=== PATIENT | male | born 1975 | race Caucasian/White ===

== ENCOUNTER → 2018-11-07 16:06 | Outpatient (CLI) | payer BC, SELFPAY ==
--- NOTE | 2018-11-07 16:13 | XR_ITS ---
XR ribs RT min 3V w CXR1V HISTORY: ITS.REASON: RIGHT RIB PAIN ORDERING PHYSICIAN: Gibran Thompson MD PATIENT AGE: 43 years Comparison: None FINDINGS: A frontal view of the chest shows no acute finding. Multiple views of the Left ribs were obtained. No fracture or dislocation. No lytic or blastic change. IMPRESSION: Negative RIBS. If pain persists, consider follow-up exam in 7-[address] with 3-D reformats.
== END ==
PROVIDERS: PCP Family Medicine; Visit Provider Family Medicine
DX: R07.81 Pleurodynia (principal)
CPT/HCPCS: 71101

== ENCOUNTER → 2020-09-04 15:49 | Outpatient (CLI) | payer BC, SELFPAY ==
[2020-09-06 11:41] LABS: Covid-19 Nasal PCR Sendout P&C Negative
== END ==
PROVIDERS: PCP Family Medicine; Visit Provider Nurse Practitioner
DX: Z11.52 Encounter for screening for COVID-19 (principal); R53.81 Other malaise; R68.89 Other general symptoms and signs
CPT/HCPCS: U0004

== ENCOUNTER → 2022-06-16 10:06 | Outpatient (CLI) | payer BC, SELFPAY ==
[2022-06-16 11:57] LABS: Adenovirus,PCR Not Detected (NotDetected); Bordetella Pertussis Not Detected (NotDetected); Chlamydophila Pneumoniae, PCR Not Detected (NotDetected); Coronavirus 19, PCR Not Detected (NotDetected); Coronavirus 229E Not Detected (NotDetected); Coronavirus NL63 Not Detected (NotDetected); Coronavirus OC43 Not Detected (NotDetected); Coronovirus HKU1,PCR Not Detected (NotDetected); Human Metapneumovirus Not Detected (NotDetected); Influenza A, PCR Not Detected (NotDetected); Influenza AH1, PCR Not Detected (NotDetected); Influenza AH3,PCR Not Detected (NotDetected); Influenza B, PCR Not Detected (NotDetected); Mycoplasma Pneumoniae, PCR Not Detected (NotDetected); Parainfluenza 1, PCR Not Detected (NotDetected); Parainfluenza 2, PCR Not Detected (NotDetected); Parainfluenza 3, PCR Not Detected (NotDetected); Parainfluenza 4, PCR Not Detected (NotDetected); Respiratory Syncytial Virus Not Detected (NotDetected); Rhinovirus/Enterovirus Not Detected (NotDetected)
[2022-06-16 15:33] LABS: Influenza AH1, 2009 Detected (NotDetected)
== END ==
PROVIDERS: PCP Family Medicine; Visit Provider Nurse Practitioner Family
DX: Z20.822 Contact with and (suspected) exposure to COVID-19 (principal); R50.9 Fever, unspecified; J10.1 Influenza due to other identified influenza virus with other respiratory manifestations
CPT/HCPCS: 87581; 87632; 87798; C9803; U0003; U0005

== ENCOUNTER 2022-06-19 08:33 | Emergency (ER) | payer BC, SELFPAY ==
[2022-06-19 08:40] VITALS: BP 124/68; PULSE 71; RESP 20; TEMP 37; O2SAT 95; BMI 27.1
--- NOTE | 2022-06-19 08:49 | EXP.UTC ---
Discharge Plan Disposition Patient Disposition: Home, Self-Care Condition: Good Prescriptions Prescriptions: New azithromycin [Zithromax Z-Sameer] 250 mg tablet See Rx Instructions .ROUTE .COMPLEX 5 Days Qty: 6 0RF Rx Instructions: For 250 mg dose pack: take 500 mg today (day 1), then 250 mg for 4 days (days 2-5) methylprednisolone [Medrol (Sameer)] 4 mg tablets,dose pack See Rx Instructions .Route .COMPLEX 6 Days Qty: 21 0RF Rx Instructions: taper pack; dngcxqgtljqjsxb-atsofktje-KB [Bromfed DM] 2-30-10 mg/5 mL Syrup 10 ml PO Q4H PRN (Reason: Cough) Qty: 240 0RF No Action loratadine [Claritin] 10 mg tablet 10 mg PO ONCE Referrals Follow up/Referrals: Kassy Dow MD [Primary Care Provider] - See instructions Activity Restrictions/Add. Instructions Additional Instructions/Restrictions: Start Oral steriods tomorrow *Monitor Temp, Over the counter Motrin or Tylenol as directed/as needed Tylenol every 4 hours and Motrin every 6 hours (as long as your family doctor has told you that you can take it) for fever or pain. and straight to ER if unable to lower temp less than 101.0 after medication given *Warm salt water gargles may help to soothe the throat *Throat Lozenges? *Warm fluids like tea with honey may help to soothe the throat? *Sleep elevated *Humidifier/Vaporizer Your throat swab was sent for culture. Those results are typically sent to your primary care. Be sure to follow up in 2-3 days with your family doctor/primary care physician if no improvement so they can review those result and treat if necessary. If you don?t have a primary care doctor, I recommend you get one but in the mean time, you will have to return to a walk in clinic Follow up IMMEDIATELY for new or worsening symptoms or no Noticeable improvement over the next 48-72 hours. 911 for difficulty breathing or swallowing Clinical Impressions Clinical Impression: Pharyngitis Qualifiers: Pharyngitis/tonsillitis etiology: unspecified etiology Qualified Code(s): J02.9 - Acute pharyngitis, unspecified Instructions Patient Instructions: Sore Throat, Azithromycin Discharge ED Provider: Mayda Calzada [facility] [place] HPI General Stated complaint: Sore throat, Dry Cough, Can hardly talk Mode of Arrival: Ambulatory Source of Information: Patient Limitations: No Limitations Time Seen by Provider: 06/19/22 08:49 Description of Symptoms (Recalled from Triage Doc. by RN): PATIENT C/O SORE THROAT X 3 DAYS HEENT Symptoms (Recalled from RN notes): Yes Resp Symptoms (Recalled from RN notes): No Skin Symptoms (Recalled from RN notes): No MS Symptoms (Recalled from RN notes): No Functional Status (Recalled from RN notes): WNL History of Present Illness Provider Complaint: Patient states that last week he had the flu States that now his throat has been hurting for about 3 days and hurts when he swallows or tries to talk States that today felt like he was swallowing razor blades and today is the worst it has been so he came in Related Data Home Medications Medication Instructions Recorded Confirmed loratadine 10 mg tablet (Claritin) 10 mg PO ONCE Allergy symptoms 12/07/17 06/19/22 Previous Rx's Medication Instructions Recorded azithromycin 250 mg tablet See Rx Instructions PO .COMPLEX 5 06/19/22 (Zithromax Z-Sameer) days #6 tabs eggockezzbhscjj-koatnjfiavaepmm-WQ 10 ml PO Q4H PRN Cough #240 mL 06/19/22 2 mg-30 mg-10 mg/5 mL oral syrup (Bromfed DM) methylprednisolone 4 mg tablets in See Rx Instructions .Route 06/19/22 a dose pack (Medrol (Sameer)) .COMPLEX 6 days #21 tabs Allergies Allergy/AdvReac Type Severity Reaction Status Date / Time No Known Allergies Allergy Verified 10/13/18 17:35 Worker's Comp Is this a Worker's Comp case?: No PFSH PFS Medical History (Updated 06/19/22 @ 08:58 by Mayda Calzada APRN) No significant past medical history Social History (Updated 06/19/22 @ 08:47 by
[2022-06-19 08:55] LABS: UTC Strep Screen (Rapid) Negative (Negative)
[2022-06-19 09:02] VITALS: BP 124/68; PULSE 71; RESP 20; TEMP 37; O2SAT 95
== END 2022-06-19 09:13 | disposition home or self-care (01) ==
PROVIDERS: Emergency Provider Nurse Practitioner; PCP Family Medicine
DX: J02.9 Acute pharyngitis, unspecified (principal)
CPT/HCPCS: 87880; 96372; 99212; G0463